=== PATIENT | female | born 1965 | race Caucasian/White ===

== ENCOUNTER → 2019-03-03 09:59 | Outpatient (CLI) | payer BC, SELFPAY ==
[2019-03-03 11:32] LABS: EXAGEN MAILED SPECIMEN
[2019-03-03 12:27] LABS: Absolute Neutrophil Count 5.3 X10^3/uL (2.0-7.7); Basophil# 0.05 X10^3/uL; Basophil% 0.6 % (0-1); Eosinophil# 0.27 X10^3/uL; Eosinophils% 3.2 % (0-5); Hematocrit 46.8 % (37-47); Hemoglobin 14.8 g/dL (12.0-15.0); Lymphocyte % 25.8 % (19-41); Mean Corp Hgb Conc 31.6 g/dL (32-36); Mean Corpuscular Hgb 30.5 pg (27.0-32.0); Mean Corpuscular Volume 96.5 fL (81-99); Monocyte# 0.64 X10^3/uL; Monocyte% 7.5 % (0-10); NRBC Flagged by Analyzer 0 % (0-5); Neutrophil # 5.33 X10^3/uL (2.7-7.7); Neutrophil % 62.5 % (47-70); Platelet Count 260 K/mm3 (150-450); RBC Distribution Width CV 14.5 % (11.6-14.6); RBC Distribution Width SD 51.8 fl (35.1-43.9); Red Blood Count 4.85 M/mm3 (4.2-5.4); White Blood Count 8.5 K/mm3 (4.4-11.0)
[2019-03-03 12:30] LABS: Color, Urine Yellow (Yellow); Glucose, Dipstick Normal (Normal); Ketone-Dipstick Negative (Negative); Leukocyte Esterase-Dipstick 500 /ul (Negative); Nitrite-Dipstick Positive (Negative); Occult Blood-Urine 50 /ul (Negative); Protein-Dipstick Negative (Negative); Specific Gravity, Urine 1.015 (1.002-1.030); Urine Bilirubin Dipstick Negative (Negative); Urine Clarity Sl. Cloudy (Clear); Urine Urobilinogen Normal (Normal)
[2019-03-03 12:42] LABS: Protein, Urine (Random) 11.8 mg/dL (<11.9); Protein:Creat Ratio 97 mg/g CRE (0-200)
[2019-03-03 12:46] LABS: ALB/GLOB Ratio 0.9 RATIO (0.9-2.4); AST(SGOT) 15 U/L (15-37); Alanine Aminotransfer ALT/SGPT 25 U/L (13-56); Albumin, Serum 3.3 g/dL (3.2-5.0); Alkaline Phosphatase 115 U/L (45-117); Anion Gap 6 (5-15); BUN 15 mg/dL (7-18); BUN/Creat Ratio 12.7 RATIO (10-20); Calcium,Total 9.3 mg/dL (8.5-10.1); Chloride 108 mmol/L (98-107); Creatinine, Serum 1.18 mg/dL (0.55-1.02); EST Glomerular Filtration Rate 51 mL/min (>60); Est Glom Filt Rate - Afr Amer 61 mL/min (>60); Globulin 3.7 g/dL (2.2-4.2); Glucose 85 mg/dL (74-106); Potassium 4.1 mmol/L (3.5-5.1); Sodium Level 139 mmol/L (136-145)
== END ==
PROVIDERS: Family Provider Nurse Practitioner Family; PCP Nurse Practitioner Family; Referring Provider Internal Medicine Rheumatology; Visit Provider Internal Medicine Rheumatology
DX: M06.4 Inflammatory polyarthropathy (principal); R76.8 Other specified abnormal immunological findings in serum; M17.12 Unilateral primary osteoarthritis, left knee; M21.40 Flat foot [pes planus] (acquired), unspecified foot; K21.9 Gastro-esophageal reflux disease without esophagitis
CPT/HCPCS: 36415; 80053; 81002; 82570; 84156; 85025

== ENCOUNTER 2024-02-23 12:36 | Inpatient (IN) | payer BC, SELFPAY ==
--- NOTE | 2024-02-03 13:03 | EKG12_ITS ---
Test Reason : PREOP Blood Pressure : / mmHG Vent. Rate : 061 BPM Atrial Rate : 061 BPM P-R Int : 146 ms QRS Dur : 076 ms QT Int : 398 ms P-R-T Axes : 037 022 009 degrees QTc Int : 400 ms Normal sinus rhythm Normal ECG Confirmed by JONATHAN ROBLERO MD ([id number]), news videotape editor JESSICA PHAN ([id number]) on 02/04/2024 10:10:10 AM Referred By: ANDRAE Confirmed By:JONATHAN ROBLERO MD
[2024-02-03 13:45] LABS: Absolute Lymphocyte Count 2.27 X10^3/uL (0.83-4.51); Absolute Neutrophil Count 5.6 X10^3/uL (2.0-7.7); Basophil# 0.06 X10^3/uL; Basophil% 0.6 % (0-1); Eosinophil# 0.84 X10^3/uL; Eosinophils% 8.8 % (0-5); Hematocrit 44.4 % (37-47); Hemoglobin 14.3 g/dL (12.0-15.0); Lymphocyte # 2.27 X10^3/ul (0.83-4.51); Lymphocyte % 23.8 % (19-41); Mean Corp Hgb Conc 32.2 g/dL (32-36); Mean Corpuscular Hgb 31.2 pg (27.0-32.0); Mean Corpuscular Volume 96.7 fL (81-99); Mean Platelet Vol. 9.6 fl (6.2-12.0); Monocyte# 0.71 X10^3/uL; Monocyte% 7.5 % (0-10); NRBC Flagged by Analyzer 0 % (0-5); Neutrophil # 5.62 X10^3/uL (2.7-7.7); Neutrophil % 59.1 % (47-70); Platelet Count 270 K/mm3 (150-450); RBC Distribution Width CV 13.7 % (11.6-14.6); RBC Distribution Width SD 48.9 fl (35.1-43.9); Red Blood Count 4.59 M/mm3 (4.2-5.4); White Blood Count 9.5 K/mm3 (4.4-11.0)
[2024-02-03 14:02] LABS: Albumin, Serum 3.1 g/dL (3.2-5.0); Anion Gap 2 (5-15); BUN 28 mg/dL (7-18); BUN/Creat Ratio 24.1 RATIO (10-20); Calcium,Total 9.6 mg/dL (8.5-10.1); Chloride 111 mmol/L (98-107); Creatinine, Serum 1.16 mg/dL (0.55-1.02); EST Glomerular Filtration Rate 51 mL/min (>60); Est Glom Filt Rate - Afr Amer 62 mL/min (>60); Glucose 97 mg/dL (74-106); Potassium 4.3 mmol/L (3.5-5.1); Sodium Level 141 mmol/L (136-145)
[2024-02-03 14:25] LABS: Magnesium 2.2 mg/dL (1.6-2.6)
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
[2024-02-23] VITALS (16 sets, daily range): BP systolic 115–147; BP diastolic 57–69; PULSE 63–89; RESP 13–18; TEMP 35.8–36.9; O2SAT 93–99; BMI 38.6
[2024-02-23] MEDS: Lactated Ringers 1,000 ML 999 ML IV ×2 (09:39→14:25)
[2024-02-23] MEDS: Magnesium 1 GM over 15 mins IV (09:40)
[2024-02-23] MEDS: Acetaminophen 500 MG Tablet 1000 MG PO ×2 (09:40→19:52)
[2024-02-23] MEDS: Meloxicam 15 MG Tablet PO (09:41)
[2024-02-23] MEDS: Gabapentin 600 MG Tablet PO (09:41)
[2024-02-23 09:46] LABS: Bedside Glucose 56 mg/dL (74-106)
[2024-02-23] MEDS: Dextrose 5%-Lactated Ringers 1,000 ML 150 ML IV (09:53)
--- NOTE | 2024-02-23 10:08 | PCM.PRE.AN2 ---
ASA Classification* ASA Classification ASA Classification: 2 Assessment & Plan Anesthesia* Anesthesia Assessment Anesthesia Assessment: Discussed sedation and/or anesthesia options, risks, benefits, and alternatives with patient/parents/legal guardian/POA. Questions invited. The patient/parents/legal guardian/POA seems to understand and agrees to proceed with anesthesia plan. Reviewed the physical assessment, medical history, allergy history and patient home medications list prior to surgery/procedure/anesthetic and documented any changes. Performed airway and anesthesia risk assessments. Anesthesia Type Anesthesia Type: Spinal History Source History Obtained from:: Patient and Chart Anesthesia Focused Assessment* Temperature: 96.4 F Pulse Rate: 63 Blood Pressure: 120/65 Respiratory Rate: 16 Pulse Ox: 96 Oxygen Delivery Method: Room Air Airway Assessment Mouth opens: >3 cm Mallampati Score: IV Teeth Condition: Chipped/Broken (Right upper molar is broken.) and Missing (Patient is missing tooth left lower molar) Neck Range of motion (ROM): Full ROM Focused Labs Anesthesia Preop lab: CBC WBC 9.5 K/mm3 (4.4-11.0) 02/03/24 13:23 RBC 4.59 M/mm3 (4.2-5.4) 02/03/24 13:23 Hgb 14.3 g/dL (12.0-15.0) 02/03/24 13:23 Hct 44.4 % (37-47) 02/03/24 13:23 Plt Count 270 K/mm3 (150-450) 02/03/24 13:23 CHEMISTRY Potassium 4.3 mmol/L (3.5-5.1) 02/03/24 13:23 Sodium 141 mmol/L (136-145) 02/03/24 13:23 Magnesium 2.2 mg/dL (1.6-2.6) 02/03/24 13:22 BUN 28 mg/dL (7-18) H 02/03/24 13:23 Creatinine 1.16 mg/dL (0.55-1.02) H 02/03/24 13:23 Glucose 97 mg/dL (74-106) 02/03/24 13:23 POC Glucose 56 mg/dL (74-106) L 02/23/24 09:25 COAG Pre-Assessment Diagnosis/Proposed Procedure Planned Operative Procedure(s): RIGHT KNEE POLYETHLENE EXCHANGE Anesthesia History Anesthesia History - financial professional: Anesthesia History - financial professional Hx Hospitalization No 01/27/24 10:13 Any Problems With Anesthesia No 01/27/24 10:13 Cholinesterase deficiency No 01/27/24 10:13 You/Your Family Experience No 01/27/24 10:13 fever (hyperthermia) with Relationship Recent Exposure to Contagious No 02/23/24 09:50 Disease Does patient have nerve No 01/27/24 10:13 stimulator Patient instructed to have device shut off --Does patient have Pacemaker No 02/23/24 09:50 or ICD? When Was Last Pacemaker Check QUESTION #4 FULL TEXT: You/Your Family Experience fever (hyperthermia) with Anesthesia Last Oral Intake Last Oral intake: Last Oral Intake NPO since 07:00 02/23/24 09:50 Meds taken in AM with sips of No 02/23/24 09:50 water? Meds patient instructed to take am of surgery Any additional information?: Yes NPO since: 07:00 (Patient had her Ensure at 7 AM.) PONV PONV - financial professional: PONV - financial professional Female Yes 01/27/24 10:13 HX of Motion Sickness No 01/27/24 10:13 HX of N/V After Surgery No 01/27/24 10:13 Non-Smoker Yes 01/27/24 10:13 Duration of Surgery greater Yes 01/27/24 10:13 than 60 minutes Number of Risk Factors 3 01/27/24 10:13 PONV Score Moderate Risk 01/27/24 10:13 Height & Weight Height & Weight: Anesthesia: Height & Weight Height 5 ft 7 in 02/23/24 09:50 Weight: 111.9 kg 02/23/24 09:50 Body Mass Index (BMI) 38.6 02/23/24 09:50 Respiratory Assessment Respiratory Assessment - financial professional: Respiratory Tract Infection Hx - financial professional Hx Respiratory Tract Infection No 01/27/24 10:13 STOP Sleep Apnea STOP Sleep Apnea - financial professional: STOP Sleep Apnea - financial professional Hx Hypertension No 01/27/24 10:13 Hx Sleep Apnea No 01/27/24 10:13 CPAP BIPAP Do you snore loudly (louder Yes 01/27/24 10:13 than talking or can be heard Do you often feel tired/ No 01/27/24 10:13 fatigued/ sleepy during daytime? Has anyone observed you stop No 01/27/24 10:13 breathing during sleep? STOP Results Negative 01/27/24 10:13 QUESTION #5 FULL TEXT : Do you snore loudly (louder than talking or can be heard through closed doors)? Tobacco Use History Tobacco Use History - financial professional: Tobacco Use History - financial professional Tobacco Use Smoking Status Never smoker 01/27/24 10:13 Hx Tobacco Use No 01/27/24 10:13 Years Smoking Packs Smoked per Day Smoking Cessation Date was within the last 15 years Hx Smoking Cessation Date Hx Smoking Cessation Counseling Hematologic Medial History Hematologic Hx - financial professional: Hematologic Medical Hx - french comber Hx of Blood Transfusion No 01/27/24 10:13 Hx of Transfusion in last 3 No 01/27/24 10:13 Months Date of Last Transfusion (if within last 3 months) Ever experience any problems No 01/27/24 10:13 with transfusion(s)? Specify any problems Hx of Preganancy in last 3 No 01/27/24 10:13 Months Nurse Filling Out Transfusion DSCHRIBER 01/27/24 10:13 & Questions: Date: 01/27/24 01/27/24 10:13 Time: 10:14 01/27/24 10:13 Patient unable to answer at this time (ie. confused, unrespo /Reproduction History /Reproductive History - financial professional: /Reproductive Hx- financial professional Hx Now No 01/27/24 10:13 Gestational Age (in weeks): EDC: Hx Hx Para Hx Section SAB No 01/27/24 10:13 Active Medications Active Medications: Current Medications Generic Name Dose Route Start Last Admin Trade Name Freq PRN Reason Stop Dose Admin Acetaminophen 1,000 mg 02/23/24 12:00 02/23/24 09:40 Acetaminophen 500 Mg Tablet PO 02/23/24 12:01 1,000 mg X1 ONE Administration Sodium Chloride 77.4 ml/ 0 ml 02/23/24 12:00 Ropivacaine 200 mg/ OPERA.SITE 02/23/24 12:01 Epinephrine HCl 0.6 mg/ X1 ONE Ketorolac Tromethamine 30 mg/ Morphine Sulfate 5 mg Dexamethasone Sodium Phosphate 10 mg 02/23/24 12:00 Dexamethasone 10 Mg/Ml Vial IV 02/23/24 12:01 X1 ONE Gabapentin 600 mg 02/23/24 12:00 02/23/24 09:41 Gabapentin 600 Mg Tablet PO 02/23/24 12:01 600 mg X1 ONE Administration Lactated Ringer's 1,000 mls @ 999 mls/hr 02/23/24 12:00 02/23/24 09:39 IV 02/23/24 13:00 999 mls/hr .Q1H1M AWILDA Administration Tranexamic Acid 1,000 mg/ 110 mls @ 660 mls/hr 02/23/24 12:00 Sodium Chloride IV 02/23/24 12:09 X1 ONE Tranexamic Acid 1,000 mg/ 110 mls @ 660 mls/hr 02/23/24 13:00 Sodium Chloride IV 02/23/24 13:09 X1 ONE Lactated Ringer's 1,000 mls @ 999 mls/hr 02/23/24 13:00 IV 02/23/24 14:00 .Q1H1M AWILDA Lactated Ringer's 1,000 mls @ 125 mls/hr 02/23/24 14:00 IV 02/23/24 21:59 .Q8H AWILDA Cefazolin Sodium 2 gm/ N/A 20 mls @ 400 mls/hr 02/23/24 12:00 IV 02/23/24 12:02 PREOP ONE Magnesium Sulfate 1 gm/ 102 mls @ 408 mls/hr 02/23/24 12:00 02/23/24 09:40 Dextrose IV 02/23/24 12:14 408 mls/hr X1 ONE Administration Dextrose/Lactated Ringer's 1,000 mls @ 150 mls/hr 02/23/24 09:45 02/23/24 09:53 IV 02/23/24 16:24 150 mls/hr .Q6H40M ONE Administration Insulin Human Lispro 1 - 6 unit 02/23/24 12:00 Insulin Lispro 100 Unit/Ml Insuln.Pen SC 02/23/24 18:00 Q4H PRN PRN BG>/= 180, SEE PROTOCOL Protocol Meloxicam 15 mg 02/23/24 12:00 02/23/24 09:41 Meloxicam 15 Mg Tablet PO 02/23/24 12:01 15 mg PREOP ONE Administration PFSH Medical History Wears glasses Broken tooth Post-menopausal Arthritis History of hiatal hernia Gastric reflux Shortness of breath on exertion Non-smoker History of pain when walking History of edema Home Medications ?Medication ?Instructions ?Recorded ?Last Taken ?Type ranitidine HCl 150 mg tablet 75 mg PO QHS GERD 01/27/24 02/22/24 History Allergy/AdvReac Type Severity Reaction Status Date / Time vancomycin Allergy Severe Itching Verified 02/23/24 09:38 ciprofloxacin Allergy Mild Itching Verified 02/23/24 09:39 doxycycline AdvReac Intermediate Other Verified 02/23/24 09:38 Sulfa (Sulfonamide AdvReac Intermediate Other Verified 02/23/24 09:38 Antibiotics) Surgical History Hx of colonoscopy History of esophagogastroduodenoscopy (EGD) Hx of total knee arthroplasty Hx of total knee arthroplasty Hx of tubal ligation Hx of lithotripsy Hx laparoscopic cholecystectomy Social History Smoking Status: Never smoker Review of Systems (Anesthesia) ROS Narrative System reviewed and no additional complaints, except as documented.
[2024-02-23] MEDS: Cefazolin 2 GM in Syringe IV (11:45)
[2024-02-23] MEDS: dexAMETHasone 10 MG/ML Vial IV (11:45)
[2024-02-23] MEDS: TXA 1000mg in NS100 100ml (IVPB at Incision) 660 MG IV (11:47)
[2024-02-23 11:51] LABS: Bedside Glucose 101 mg/dL (74-106)
[2024-02-23] MEDS: TXA 1000mg in NS100 100ml (IVPB at Closure) 660 MG IV (12:23)
--- NOTE | 2024-02-23 12:39 | OP.PCM_ITS ---
Operative Report (Standard) Operative Information Surgery/Procedure Performed: Right knee 1 component revision, polyethylene e xchange Surgeon: Jason Hylton Date of Procedure: 02/23/24 Procedure Start Time: 12:02 Procedure Stop Time: 13:05 Pre-Operative Diagnosis: Painful right total knee arthroplasty, and Post-Operative Diagnosis: Painful right total knee arthroplasty, instability Select all DRAINS/GRAFTS/IMPLANTS that apply: Prosthetic device Prosthetic device details: [place] X3 polyethylene size 313 mm CS implant Type of Anesthesia: Spinal Special Medications: 2 g Ancef, 1 g TXA at incision, 1 g TXA closure, 10 mg Decadron, joint cocktail (5 mg Duramorph, 30 mL of 0.5% Ropivicaine, 1000 units of epinephrine, 30 mg of Toradol) Estimated Blood Loss: 25 mL Fluids Replaced: 1000 mL crystalloid Specimen collected: Yes Description of specimen(s) removed: Synovium was resected Description of surgery: On the date of procedure patient'sR lower extremity was marked in the preoperative area. The patient was then taken back to the operating room where the patient was placed on the table in the supine position. All bony prominences were identified a well-padded. Anesthesia assumed control of the C-spine and airway and remained controlled throughout the remainder of the procedure. A tourniquet was placed on the operative thigh and the leg was prepped in a sterile fashion. The surgeon then scrubbed at this time. Upon reentering the room left lower extremity was draped in a standard orthopedic fashion. A timeout was then called and everyone agreed upon the side, the site, the procedure to be performed, patient's identity and antibiotics given. A midline skin incision was made and sharp dissection was taken down through skin subcutaneous tissue and fat. Appropriate flaps were elevated medially and laterally. His arthrotomy was identified and the standard medial parapatellar incision was made and the patella was subluxed laterally. The standard deep MCL release was done. At this point a synovectomy commenced. Our attention was first turned towards the subpatellar pouch and all synovium and tissues were debrided. We then directed our attention towards medial lateral gutters were these tissues were debrided. Knee was then flexed up the polyethylene was removed. Once polyethylene was removed we did the remainder of the synovium in the medial and lateral gutters and along the lateral structures and MCL. We then debrided the posterior knee. Knee was flexed up and synovium was taken from the femoral notch. And also there was a membrane beneath the tibial baseplate that was removed. He had completed our synovectomy and were happy with the joint. We then used a chlorahexadine scrub sponge and physically scrub the metal implants using a scrub sponge but nothing abrasive. We also scrubbed the remainder of the wound with chlorhexidine. 6 L of normal saline were then irrigated throughout the wound with low-pressure lavage and the wound was once again exp lored. At this time we carefully examined the knee. Patient did have a slight medial lateral mismatch especially in extension. We did a posterior medial release to help with this. An 11 mm polyethylene was removed. After trialing a 13 mm polyethylene was more appropriate. The 14 was too tight and gave us a slight flexion contracture. 13 mm polyethylene was then opened and put back into place after appropriate trialing. Tourniquet was let down and hemostasis was obtained as well as possible. Once the final components were placed the wound was copiously irrigated with normal saline solution. The wound was closed in a layer soriano fashion using #1 vicryl interrupted sutures for the arthrotomy, 2-0 interrupted Vicryl for the subcuticular layer and nylon for final skin closure. A sterile compressive dressing was then placed. The patient was then awakened from anesthesia, transferred to the rfour corners and transferred to the PACU for recovery. Post op plan Weightbearing as tolerated, postoperative total knee protocol. Xarelto for 2 weeks for DVT prophylaxis due to previous VTE. Keflex 500 mg 3 times daily due to patient's revision surgery increasing risk of infection. My physician general surgery physician assistant was a vital part of this case, they was important because there was not another skilled set of hands available to their training and aptitude needed for safe and appropriate completion of this case. They were important in appropriate retraction during the case, and protection of soft tissues during bony cuts. In particular the experience and skill of this general surgery physician assistant made for safe retraction and exposure during implantation of medical implants without damage or fracture to vital soft tissues or structures. His intimate knowledge of the case and my steps aided in safe and expedient completion of the procedure as well as appropriate position of the leg during the case. He was also vital in assisting with closure and placement of the dressing under my direct supervision. Surgical Findings: Stable knee. Improved stability. Survey Instrument Operator toll test desk worker: Yes Continuous Churn Buttermaker: Daniel Rosario Tasks completed by international first officer: Other (See body of operative report) Additional general surgery physician assistant?: No Complications Complications: No Admit VTE Documentation VTE Present on Admission: No VTE Mechan Device Prophylaxis: SCD's and Thigh High YI Hose VTE Pharm Prophylaxis ordered?: Yes
[2024-02-23] MEDS: JPS (Morphine 10mg/ml) OPERA.SITE (12:43)
--- NOTE | 2024-02-23 13:30 | PCM.POST.ANE ---
Anesthesia: Postop Eval I Current Vital Signs Temperature: 97.1 F Pulse Rate: 89 Blood Pressure: 120/57 Respiratory Rate: 18 Pulse Ox: 94 Assessment Airway patent: Yes Spontaneous unlabored respirations: Yes nausea: No Vomiting: No Anesthesia Complication: No Fluid Hydration Crystalloid volume administer (ml): 1,000 Total IV fluid infused: 1,000 Progress Note Anesthesia document: Postop Eval 1 completed: Yes
--- NOTE | 2024-02-23 14:10 | RAD_ITS ---
STUDY: X-RAY - RIGHT KNEE REASON FOR EXAM: Female, 59 years old. Post op -- AP and Lateral x-ray of operative knee in PACU TECHNIQUE: 2 view(s) of the knee. COMPARISON: None. FINDINGS: Normal visualized distal femur. Normal visualized proximal tibia and fibula. Normal proximal tibiofibular articulation. The patient is status post total knee replacement. There is good alignment. Postoperative soft tissue changes. RAD/Knee 1 or 2 Views IMPRESSION: Status post right total knee replacement. There is good alignment. Postoperative soft tissue changes. Electronically Signed: Aditya Hinton MD at 14:23 EST ,
[2024-02-23 14:46] LABS: Bedside Glucose 194 mg/dL (74-106)
--- NOTE | 2024-02-23 14:55 | POSTOPAN2_ITS ---
Anesthesia Postop Eval I Sum Postop Eval Completion status Anesthesia document: Postop Eval 1 completed: Yes Anesthesia Postop Eval I Summary Anesthesia Postop Eval I Summary: Anesthesia Postop Eval I: Assessment Summary Airway patent Yes 02/23/24 13:30 MAINTENANCE SUPERVISOR 2ND SHIFT.CSIR Spontaneous unlabored Yes 02/23/24 13:30 MAINTENANCE SUPERVISOR 2ND SHIFT.CSIR respirations Mental status nausea No 02/23/24 13:30 MAINTENANCE SUPERVISOR 2ND SHIFT.CSIR Vomiting No 02/23/24 13:30 MAINTENANCE SUPERVISOR 2ND SHIFT.CSIR Anesthesia Postop Eval I: Fluid Summary Crystalloid volume administer 1,000 02/23/24 13:30 MAINTENANCE SUPERVISOR 2ND SHIFT.CSIR (ml) Colloids volume administered ( ml) Blood Product volume administered (ml) Total IV fluid infused 1,000 02/23/24 13:30 MAINTENANCE SUPERVISOR 2ND SHIFT.CSIR Anesthesia Postop Eval I: Summary Notes Anesthesia Complication No 02/23/24 13:30 MAINTENANCE SUPERVISOR 2ND SHIFT.CSIR Anesthesia Complication Comment: Post-operative progress note Anesthesia: Postop Eval II Evaluation Mental status: Awake and Calm Pain Level: 2 nausea: No Vomiting: No Complications Anesthesia Complication: No
--- NOTE | 2024-02-23 14:55 | PCM.POSTANE2 ---
Anesthesia Postop Eval I Sum Postop Eval Completion status Anesthesia document: Postop Eval 1 completed: Yes Anesthesia Postop Eval I Summary Anesthesia Postop Eval I Summary: Anesthesia Postop Eval I: Assessment Summary Airway patent Yes 02/23/24 13:30 [email or web address] Spontaneous unlabored Yes 02/23/24 13:30 ROOFER METAL.CSIR respirations Mental status nausea No 02/23/24 13:30 ROOFER METAL.CSIR Vomiting No 02/23/24 13:30 ROOFER [email or web address].CSIR Anesthesia Postop Eval I: Fluid Summary Crystalloid volume administer 1,000 02/23/24 13:30 ROOFER METAL.CSIR (ml) Colloids volume administered ( ml) Blood Product volume administered (ml) Total IV fluid infused 1,000 02/23/24 13:30 ROOFER [email or web address].CSIR Anesthesia Postop Eval I: Summary Notes Anesthesia Complication No 02/23/24 13:30 ROOFER METAL.CSIR Anesthesia Complication Comment: Post-operative progress note Anesthesia: Postop Eval II Evaluation Mental status: Awake and Calm Pain Level: 2 nausea: No Vomiting: No Complications Anesthesia Complication: No
--- NOTE | 2024-02-23 15:48 | PCM.CONS.GEN ---
Assessment & Plan Assessment/Plan (1) Status post revision of total replacement of right knee: PLAN: Plan Patient is a 59-year-old female who presented to [facility] on 02/23/2024 for planned right knee revision surgery. Medicine consulted postoperatively for medical management. 1. 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 Orthopedic surgery primary. S/p right knee revision procedure with Dr. Hylton on 02/22. Patient tolerated procedure well, no intraoperative complications. Management of pain control and DVT prophylaxis per orthopedics. Follow-up a.m. CBC and BMP. 2. GERD ? Stable. Continue home Pepcid. 3. Obesity ? BMI 38 on admit. Complicates hospital course, care and prognosis. Total clinical time spent by myself addressing the patient's medical issues, reviewing all the data, and collaborating with patient's care team: 35 minutes. HPI Consult Data Date of Consult: 02/23/24 HPI Narrative Reason for Consultation: Post operative medical management HPI Narrative: SPENCER PERSAUD, is a 59 F who presented to [facility] on 02/23/2024 for planned right knee revision surgery with Dr. Hylton. Medicine consulted postoperatively for medical management. Saw the patient at bedside this evening. She was sitting up comfortably in bed, conversing normally, in no acute distress and breathing well on room air. She did report mild to moderate right knee pain currently and nurse at bedside had just given her a dose of IV pain medication for this. Patient otherwise felt fatigued but denied any other acute concerns currently. FORMERLY [facility], [facility] Medical History Wears glasses Broken tooth Post-menopausal Arthritis History of hiatal hernia Gastric reflux Shortness of breath on exertion Non-smoker History of pain when walking History of edema Home Medications ?Medication ?Instructions ?Recorded ?Last Taken ?Type ranitidine HCl 150 mg tablet 75 mg PO QHS GERD 01/27/24 02/22/24 History Allergy/AdvReac Type Severity Reaction Status Date / Time vancomycin Allergy Severe Itching Verified 02/23/24 09:38 ciprofloxacin Allergy Mild Itching Verified 02/23/24 09:39 doxycycline AdvReac Intermediate Other Verified 02/23/24 09:38 Sulfa (Sulfonamide AdvReac Intermediate Other Verified 02/23/24 09:38 Antibiotics) Surgical History Hx of colonoscopy History of esophagogastroduodenoscopy (EGD) Hx of total knee arthroplasty Hx of total knee arthroplasty Hx of tubal ligation Hx of lithotripsy Hx laparoscopic cholecystectomy Social History Smoking Status: Never smoker ROS Constitutional Constitutional: Reports fatigue; Denies chills, fever(s) or weakness Cardiovascular Cardiovascular: Denies chest pain Respiratory/Chest Respiratory/Chest: Denies shortness of breath at rest Gastrointestinal Gastrointestinal: Denies abdominal pain Musculoskeletal Musculoskeletal: Reports joint pain; Denies arthralgias or myalgias Physical Exam Const alert, oriented x3 and no apparent distress Constitutional Narrative: Pleasant middle-age female, obese, mildly fatigued appearing, otherwise sitting up comfortably in bed, conversing normally, in no acute distress. General Appearance: cooperative and comfortable HEENT normocephalic, head/scalp atraumatic, hearing grossly normal bilaterally, nasal mucous membranes and turbinates normal and moist oral mucous membranes Eyes PERRL, EOMs intact bilaterally and conjunctivae normal Neck full ROM Chest inspection of chest normal Resp normal respiratory effort, normal air movement, no use of accessory muscles and clear to auscultation bilaterally Cardio regular rate, regular rhythm, no murmurs and peripheral pulses 2+ throughout GI normal to inspection, nondistended, normoactive bowel sounds, soft to palpation, non-tender and non-distended Back/Spine normal ROM Extremity no pedal edema Extremity Narrative: Right knee with ice pack in place. Skin no rashes or lesions noted Psych mental status grossly normal Lab / Micro Data 02/03/24 13:23 02/03/24 13:23 Labs: Laboratory Results - last 24 hr 02/23/24 09:25: POC Glucose 56 L 02/23/24 11:33: POC Glucose 101 02/23/24 14:29: POC Glucose 194 H Imaging Radiology Impression Knee X-Ray 02/23/24 14:10 IMPRESSION: Status post right total knee replacement. There is good alignment. Postoperative soft tissue changes. Electronically Signed: Aditya Hinton MD at 14:23 EST , Charges/Coding Visit Charges Inpatient E&M: 80632 Subs Hosp L2
[2024-02-23] MEDS: Ondansetron 4 MG/2 ML Vial IV (15:49)
[2024-02-23] MEDS: Morphine 2 MG/ML Syringe IV (15:49)
[2024-02-23] MEDS: Lactated Ringers 1,000 ML 125 ML IV (15:50)
[2024-02-23] MEDS: Aspirin 81 MG TAB.CHEW PO (17:41)
[2024-02-23] MEDS: Ensure Surgery 237 ML LIQUID PO (17:42)
[2024-02-23] MEDS: Cefazolin 1 GM/50 ML BAG IV (19:52)
[2024-02-23] MEDS: Senna/Docusate Sodium 1 Tablet 2 TABLET PO (19:52)
[2024-02-23] MEDS: Famotidine 20 MG Tablet PO (22:27)
[2024-02-24] MEDS: Cefazolin 1 GM/50 ML BAG IV (02:47)
[2024-02-24 03:00] VITALS: BP 117/61; PULSE 76; RESP 12; TEMP 36.8; O2SAT 96
[2024-02-24] MEDS: Rivaroxaban 10 MG Tablet PO (04:30)
[2024-02-24] MEDS: Acetaminophen 500 MG Tablet 1000 MG PO ×2 (04:30→13:31)
[2024-02-24 06:57] LABS: Hematocrit 38.9 % (37-47); Hemoglobin 12.9 g/dL (12.0-15.0); Mean Corp Hgb Conc 33.2 g/dL (32-36); Mean Corpuscular Hgb 31.7 pg (27.0-32.0); Mean Corpuscular Volume 95.6 fL (81-99); Platelet Count 268 K/mm3 (150-450); RBC Distribution Width CV 13.6 % (11.6-14.6); RBC Distribution Width SD 48.4 fl (35.1-43.9); Red Blood Count 4.07 M/mm3 (4.2-5.4); White Blood Count 17.9 K/mm3 (4.4-11.0)
--- NOTE | 2024-02-24 07:26 | PN.ORTHO_ITS ---
Subjective Subjective The patient was sitting in bed upon examination. Patient denies any chest pain, shortness of breath, dizziness, lightheadedness, nausea or vomiting, or calf pain. Pain is controlled on medications. No adverse overnight events. Patient overall is doing well this morning. She has been up to bathroom. Patient has not worked with physical therapy yet. Patient had revision total knee arthroplasty with polyethylene exchange. Objective Data Objective Data Vital Signs: Vital Signs Temp Pulse Resp BP Pulse Ox O2 Del Method O2 Flow Rate 98.3 F 76 12 117/61 96 Room Air 4 02/24/24 03:00 02/24/24 03:00 02/24/24 03:00 02/24/24 03:00 02/24/24 03:00 02/24/24 03:00 02/23/24 14:30 Oxygen Flow Rate (L/min) 4 Oxygen Delivery Method Room Air Weight: 111.9 kg Body Mass Index (BMI) 38.6 Intake & Output: Intake and Output for Last 24 Hours 02/22/24 02/23/24 02/24/24 23:59 23:59 23:59 Intake Total 4338.25 / 4338.25 543.75 / 543.75 Output Total 600 / 600 Balance 4338.25 / 4338.25 -56.25 / -56.25 Lab / Micro Data 02/24/24 06:26 02/24/24 06:26 Labs: Laboratory Results - last 24 hr 02/23/24 09:25: POC Glucose 56 L 02/23/24 11:33: POC Glucose 101 02/23/24 14:29: POC Glucose 194 H 02/24/24 06:26: WBC 17.9 H, RBC 4.07 L, Hgb 12.9, Hct 38.9, MCV 95.6, MCH 31.7, MCHC 33.2, RDW Std Deviation 48.4 H, RDW Coeff of Isadora 13.6, Plt Count 268, MPV 10.0 Micro: Microbiology 02/03/24 13:23 Swab (Method) Nasal Screen MRSA/MSSA - Final Radiography Diagnostic Testing: Radiology Impression Knee X-Ray 02/23/24 14:10 IMPRESSION: Status post right total knee replacement. There is good alignment. Postoperative soft tissue changes. Electronically Signed: Aditya Hinton MD at 14:23 EST , Physical Exam Narrative Vital signs stable and afebrile. SCDs and YI hose are in place bilaterally Patient is able to plantarflex and dorsiflex actively. Sensation is intact to light touch to saphenous, sural, superficial and deep peroneal, and tibial distribution. Dressing is clean dry and intact. Negative Homans bilaterally, negative signs and symptoms of DVT. Const alert, oriented x3 and no apparent distress Assessment & Plan Assessment/Plan (1) Status post revision of total replacement of right knee: PLAN: 1. S/P right knee 1 component revision polyethylene exchange POD #1 2. Continue Pain Medications: Tylenol, meloxicam, oxycodone. I did advise the patient I do not want her using the meloxicam until she is finished with the Xarelto for DVT prophylaxis. Once finished with the Xarelto she will begin meloxicam. She was advised not to use any other nonsteroidal anti- inflammatories with meloxicam. 3. DVT Prophylaxis: Xarelto 10 mg once daily for 2 weeks postoperatively due to past history of DVT. After 2 weeks she will then switch over to aspirin 81 mg twice daily for an additional 2 weeks. Patient voiced understanding agreement with DVT prophylaxis plan. 4. PT/OT: Weightbearing as tolerated with walker 5. H & H: 12.9/38.9, asymptomatic. Labs have been reviewed 6. Reactive leukocytosis: 17.9, Afebrile. Patient did receive Decadron intraoperatively. No clinical signs of infection. 7. Continue antibiotics for 2 weeks postoperatively due to a revision total knee arthroplasty. Due to allergies patient is currently on Keflex for 2 weeks postoperatively. I did advise patient using a ewmj-iud-socnhiw probiotic while on antibiotics. 8. Encouraged Incentive Spirometry 9. Patient is aware of postoperative constipation that can occur from 1-3 days postoperatively. Will continue with senna 2 tablets twice daily until first bowel movement. Patient was advised if not having a bowel movement after day 3 she is to contact orthopedics so appropriate change can be made. Patient voiced understanding. 10. Continue postoperative medical treatment per medicine 11. Disposition: Plan will be for discharge home today as long as patient remains medically stable, tolerates therapy, and pain is adequately controlled. She would like her prescriptions [facility] scrib[facility] to [facility]. She has outpatient physical therapy established in [facility]. She will follow-up per postoperative instructions. Upon discharge she will contact our office with any concerns or questions. I have reviewed the [place] Automated Rx Reporting System (OARRS) report for this patient for refill pattern and other prescriber involvement as part of the appropriate surveillance for the provision of acute and chronic controlled medications. The report was requested and reviewed on the date of this entry and was considered in the prescribing process. This dictation was created using voice recognition software. Phonetic and/or grammatical errors may exist.
--- NOTE | 2024-02-24 07:33 | DCINST_ITS ---
Discharge Instructions Diet Discharge Diet: No restrictions Activity Discharge Activity: May Not Drive (No driving for 6 weeks postoperatively. Must also be off all narcotics and able to walk 100 feet without the use of cane or walker.) May shower in (days): 1 (Please turn dressing away from water. Okay to get wet as long as dressing is intact to skin.) Ice area for (Minutes): 20 (Every 1-2 hours while awake. Please place barrier between the skin and ice pack.) Weight Bearing Status: Weight bearing as tolerated Keep extremity elevated above heart level: Operative Extremity Dressing / Incision Call your doctor if your incision/area has: Continuous Slow Oozing, Sudden Increased Bleeding, Increased Pain/ Swelling, Increased Redness and Foul Smelling Discharge Call your doctor if you observe: Fever of 101 or Higher, Coldness, Increased Pain, Numbness or Tingling, Change in Color, Shortness of breath, Chest pain, Calf discomfort and Uncontrolled pain Remove Dressing in: 4 days (Okay to remove dressing on February 28, 2024) Additional Dressing/Incision Instructions:: Follow [facility] Post-op Instructions. Once postoperative dressing has been removed only use gentle soap and water over the incision. Do not use any ointments, Neosporin, salves, alcohol pads over the incision for 6 weeks postoperatively. Do not submerge underwater for 6 weeks postoperatively. Pain medications: Do not start the meloxicam until finished with the Xarelto. Antibiotics: Continue antibiotics for 2 weeks postoperatively. Recommend gvtf-fov-dotwflf probiotic while on the Keflex. Continue with YI hose/elastic stockings for 2 weeks postoperatively. May remove at nighttime but needs to be placed back on the leg during the day. Do NOT use alcohol with narcotic pain medication. Do NOT make important decisions while taking narcotic medication. If you have problems with taking your medication (rash, itching, nausea, etc.) call the office at once. Follow Up Care Test Results: Test results from this visit will be discussed in further detail at your follow- up appointment, if applicable. Discharge Plan Admission Admit Date/Time: 02/23/24 12:36 Attending Provider: Jason Hylton Primary Care Provider: Areli Aiken NP Consulting Providers: Marco Mccray Discharge Orders/Prescriptions Prescriptions: New acetaminophen 500 mg Tablet 1,000 mg PO TID 14 Days Qty: 84 0RF Rx Instructions: Do not take more than 3000 mg Tylenol in a 24-hour period. aspirin 81 mg tablet,delayed release (DR/EC) 81 mg PO BIDCM 14 Days Qty: 0 0RF Rx Instructions: Begin aspirin 81 mg with food twice daily for 2 weeks after finishing Xarelto. meloxicam 7.5 mg Tablet 7.5 mg PO BID 30 Days Qty: 60 0RF Rx Instructions: Do not begin meloxicam until finished with Xarelto. Do not take any other nonsteroidal anti-inflammatories while using meloxicam/Mobic. cephalexin 500 mg Capsule 500 mg PO Q8 14 Days Qty: 42 0RF oxycodone 5 mg Tablet 5 - 10 mg PO Q4H PRN PRN (Reason: as needed for pain) 7 Days Qty: 42 0RF Xarelto 10 mg Tablet 10 mg PO DAILY@0600 13 Days Qty: 13 0RF Rx Instructions: Take Xarelto for 2 weeks postoperatively for DVT prophylaxis sennosides-docusate sodium [Stimulant Laxative Plus] 8.6-50 mg Tablet 2 tab PO BID 3 Days Qty: 12 0RF Rx Instructions: Take until first bowel movement, then as needed Continued ranitidine HCl 150 mg tablet 75 mg PO QHS Referrals / Follow Up: Physical,Therapy [Other] - 02/26/24 7:00 am Areli Aiken NP, FOOTWEAR MACHINERY INSTRUCTOR-C [Primary Care Provider] - Mabel Trinidad PA [Med Staff - [facility] Practice Prof] - 03/08/24 3:15 pm Disposition Disposition (needs filled in before D/C Order can be placed): Home, Self Care
[2024-02-24 07:42] LABS: Anion Gap 7 (5-15); BUN 11 mg/dL (7-18); BUN/Creat Ratio 11.1 RATIO (10-20); Calcium,Total 8.6 mg/dL (8.5-10.1); Chloride 113 mmol/L (98-107); Creatinine, Serum 0.99 mg/dL (0.55-1.02); EST Glomerular Filtration Rate 61 mL/min (>60); Est Glom Filt Rate - Afr Amer 74 mL/min (>60); Estimated Creatinine Clearance 78.93 ml/min; Glucose 104 mg/dL (74-106); Potassium 4.3 mmol/L (3.5-5.1); Sodium Level 142 mmol/L (136-145)
[2024-02-24] MEDS: Aspirin 81 MG TAB.CHEW PO (07:54)
[2024-02-24] MEDS: Ensure Surgery 237 ML LIQUID PO (07:58)
[2024-02-24] MEDS: Senna/Docusate Sodium 1 Tablet 2 TABLET PO (07:59)
[2024-02-24 08:00] VITALS: PULSE 53
[2024-02-24] MEDS: oxyCODONE 5 MG Tablet PO (08:00)
[2024-02-24 08:25] VITALS: BP 106/60; PULSE 53; RESP 16; TEMP 36.9; O2SAT 96
--- NOTE | 2024-02-24 09:20 | CASEMGMT ---
CAM CORBIN Assessment: Face to Face with pt for initial transition planning/care coordination assessment. CAM CORBIN introduced self and role at [facility], pt voices understanding and consents to assessment. Pt is A&O x4 and answers all questions appropriately at this time. Pt sitting up in chair in no distress. Care providers, pharmacy, and demographics verified/updated. Strata: 1 Admitting Dx: Total Knee Poly Exchange PCP: Nelli Specialists: Winnie, Internal Medicine; Elyse Hylton. Preferred Pharmacy: [facility] Insurance: Balta Prescription Benefit: yes LNOK: [place], Living Arrangements: Pt lives with in a 2 story home wiht 4 steps to enter. ADLs: Pt reports I with ADLs and IADLs. Transportation: Pt drives self and denies concerns with transportation. DME: Walker, shower bench . HHC/SNF: Denies Hx of SNF, previouslys used [facility]. Pt states OP PT scheduled for 02/26/24 in [place]. Pt states no concerns with going home at time of dc. Pt states no further concerns/needs. CM to follow. Advised pt to ask CM if any further question/concerns/needs arise, voices understanding. Pt Goal: Home Plan: Home with family support and OP PT. Filomena LEVY CM
--- NOTE | 2024-02-24 09:51 | CASEMGMT ---
Addendum entered by Arminda Wallace 02/24/24 10:34: CAM CM into pt room, pt aware of cost of xarelto and states this is affordable to her. Original Note: TC to [facility], spoke with Joon, chuckie cost of xarelto is $71.65.
[2024-02-24] MEDS: Famotidine 20 MG Tablet PO (10:27)
--- NOTE | 2024-02-24 11:08 | PHA.DC_ITS ---
Pharmacy [facility] Pharm[facility] Service has performed discharge medication reconciliation and counseling for this patient. 1. ACETAMINOPHEN 1000MG PO TID X 2 WEEKS 2. ASPIRIN 81MG PO BIDCM X 2 WEEKS, AFTER XARELTO COMPLETED 3. MELOXICAM 7.5MG PO BID, AFTER XARELTO COMPLETED 4. CEPHALEXIN 500MG PO Q8 X 14 DAYS 5. OXYCODONE 5-10MG PO Q4H PRN PAIN 6. RIVAROXABAN 10MG PO DAILY X 13 DAYS 7. SENNA/DOCUSATE 2T PO BID UNTIL FIRST BM, THEN PRN CONSTIPATION The patient's discharge medication list was reviewed for discrepancies and discrepancies were resolved. The patient was counseled on the following discharge medications and changes in medications for homegoing were reviewed. The Reason for Use, instructions for use, and potential side effects were reviewed for all new medications. The patient's questions regarding all of their medications were answered. The patient was able to verbally demonstrate an understanding of their discharge medications. Patient counseled by pharmacy service associateObed. Medications at Discharge Home Medications ranitidine HCl 150 mg tablet 75 mg PO QHS GERD 01/27/24 acetaminophen 500 mg tablet 1,000 mg (2 x 500 mg) PO TID 14 days #84 tabs 02/24/24 aspirin 81 mg tablet,delayed release 81 mg PO BIDCM 14 days #0 tabs 02/24/24 cephalexin 500 mg capsule 500 mg PO Q8 14 days #42 caps 02/24/24 meloxicam 7.5 mg tablet 7.5 mg PO BID 30 days #60 tabs 02/24/24 oxycodone 5 mg tablet 5 - 10 mg (1 - 2 x 5 mg) PO Q4H PRN PRN as needed for pain 7 days #42 tabs 02/24/24 rivaroxaban 10 mg tablet (Xarelto) 10 mg PO DAILY@0600 13 days #13 tabs 02/24/24 sennosides 8.6 mg-docusate sodium 50 mg tablet (Stimulant Laxative Plus) 2 tab PO BID 3 days #12 tabs 24
[2024-02-24] MEDS: Cephalexin 500 MG Capsule PO (13:31)
[2024-02-24 13:42] VITALS: BP 126/54; PULSE 68; RESP 16; TEMP 36.3; O2SAT 100
--- NOTE | 2024-02-24 14:40 | CHAPLAIN ---
Type of Pastoral Visit _x__ Initial Visit ___ Follow-up Visit ___ On-call Visit ___ General Patient Visit ___ Spiritual Assessment ___ Family Conference ___ Bereavement ___ Rapid Response ___ Code Blue ___ Other (describe below) Pastoral Care Referral From _x__ Patient ___ Family ___ Nurse ___ Physician ___ It Analyst ___ Fraud Prevention Analyst ___ Other (describe below) Sacrament/Intervention _x__ Active listening ___ Anointing ___ Druze ___ Bereavement ___ Communion ___ [place]idal[place] exploration ___ ___ Life review ___ Prayer ___ Reconciliation ___ Sacrament of Sick ___ Supportive presence ___ Wedding ___ Other (describe below) Pastoral Comments met this patient and her spouse soon before discharge; pt is ready and both report that they are optimistic about the outcome and believe all has went well; no other needs a this time
== END 2024-02-24 13:36 | disposition home or self-care (01) | DRG 465 ==
PROVIDERS: Anesthesiology; Admitting Provider Specialist; PCP Nurse Practitioner Family; Referring Provider Specialist; Visit Provider Specialist
PROC: 0SPC09Z Removal of Liner from Right Knee Joint, Open Approach (ICD-10-PCS; CPT 27487; principal; 2024-02-23 10:55)
DX: T84.84XA Pain due to internal orthopedic prosthetic devices, implants and grafts, initial encounter (principal); T84.022A Instability of internal right knee prosthesis, initial encounter; E66.9 Obesity, unspecified; K21.9 Gastro-esophageal reflux disease without esophagitis; M79.7 Fibromyalgia; Z68.38 Body mass index [BMI] 38.0-38.9, adult; Z79.2 Long term (current) use of antibiotics; N28.9 Disorder of kidney and ureter, unspecified; Z86.718 Personal history of other venous thrombosis and embolism; X58.XXXA Exposure to other specified factors, initial encounter
CPT/HCPCS: 36415; 73560; 80048; 82040; 82962; 83735; 85025; 85027; 87081; 93005; 94668; 97162; 97166; 99252; C1776; G0463; J2405; J3475